=== PATIENT | male | born 1945 | race Caucasian/White ===

== ENCOUNTER → 2018-03-20 10:12 | Outpatient (CLI) | payer OTHER, SELFPAY ==
[2018-03-20 11:24] LABS: Hematocrit 46.8 % (41-53); Hemoglobin 16.2 g/dL (13.5-17.5); Mean Corpuscular HGB Conc 34.6 % (30-36); Mean Corpuscular Hemoglobin 31.8 PG (26-34); Mean Corpuscular Volume 92.2 fL (80-100); Platelet Count 154 X10^3/uL (150-400); Red Blood Cell Count 5.08 X10^6/uL (4.5-5.9); White Blood Cell Count 6.2 X10^3/uL (4.5-11.0)
[2018-03-20 11:53] LABS: Alanine Aminotransferase 20 IU/L (21-72); Albumin 4.1 g/dL (3.5-5.0); Albumin Globulin Ratio 1.4 (1.0-2.8); Alkaline Phosphatase 62 U/L (38-126); Aspartate Aminotransferase 28 IU/L (17-59); Bilirubin Unconjugated 0.8 mg/dL (0.0-1.1); Blood Urea Nitrogen 18 mg/dL (9-20); Calcium 9.4 mg/dL (8.4-10.2); Carbon Dioxide 30 mmol/L (22-32); Chloride 102 mmol/L (98-107); Estimated Glomerular Filt Rate > 60.0 mL/min (>60); Globulin 2.9 g/dL (1.7-4.1); Glucose 90 mg/dL (80-110); HEMOLYSIS 19 (0-50); Potassium 3.9 mmol/L (3.4-5.1); Sodium 143 mmol/L (137-145)
== END ==
PROVIDERS: Family Provider Hospitalist; PCP Hospitalist; Visit Provider Podiatrist
DX: B35.1 Tinea unguium (principal)
CPT/HCPCS: 36415; 80048; 80076; 85027

== ENCOUNTER 2021-10-25 10:47 | Emergency (ER) | payer OTHER, SELFPAY ==
[2021-10-25] VITALS (13 sets, daily range): BP systolic 144–192; BP diastolic 71–91; PULSE 60–70; RESP 13–27; TEMP 36.8; O2SAT 93–98; BMI 34.0
--- NOTE | 2021-10-25 10:56 | DI.RAD.S_ITS ---
PROCEDURE: XR CHEST 1V INDICATIONS: chest pain TECHNIQUE: One view of the chest was acquired. COMPARISON: [facility], CR, XR CHEST 1 VIEW, 02/24/2019, 10:40. [facility], CR, CHEST 2 VIEW, 12/24/2010, 10:34. FINDINGS: Surgical changes and devices: Median sternotomy wires are present and appear intact. Stable changes of prior CABG. Lungs and pleura: Lungs are clear. No pleural effusions or pneumothorax. Mediastinum: Mediastinal contours appear normal. Heart size is normal. Bones and chest wall: No suspicious bony lesions. Overlying soft tissues appear unremarkable. IMPRESSION: Stable radiographic evaluation of the chest without acute cardiopulmonary abnormalities or focal airspace disease. Dictated by: Honorio Triplett M.D. on 10/25/2021 at 11:20 Approved by: Honorio Triplett M.D. on 10/25/2021 at 11:20
[2021-10-25 11:05] LABS: Add Manual Diff / Slide Review NO; Basophils Absolute Auto 0 /uL (0-100); Basophils Percent Auto 0.6 % (0-2); Eosinophils Absolute Auto 100 /uL (0-450); Eosinophils Percent Auto 1.4 % (2-4); Hematocrit 47.4 % (41-53); Hemoglobin 16.3 g/dL (13.5-17.5); Lymphocytes Absolute Auto 1400 /uL (1100-4500); Lymphocytes Percent Auto 19.3 % (25-40); Mean Corpuscular HGB Conc 34.4 % (30-36); Mean Corpuscular Hemoglobin 31.7 PG (26-34); Mean Corpuscular Volume 92.1 fL (80-100); Monocytes Absolute Auto 1300 /uL (0-900); Monocytes Percent Auto 17.5 % (3-14); Neutrophils Absolute Auto 4600 /uL (1500-7000); Neutrophils Percent Auto 61.2 % (50-75); Platelet Count 133 X10^3/uL (150-400); Red Blood Cell Count 5.15 X10^6/uL (4.5-5.9); Red Cell Distribution Width 13.3 % (11.6-14.8); White Blood Cell Count 7.4 X10^3/uL (4.5-11.0)
[2021-10-25 11:17] LABS: Prothrombin Time 11.8 SECONDS (10.1-12.7)
[2021-10-25 11:19] LABS: COVID19 -Nasal RAPID Negative (Negative); PTT Partial Thromboplastin Tim 34 SECONDS (26.4-36.2)
[2021-10-25 11:21] LABS: Alanine Aminotransferase 16 IU/L (<50); Albumin 4.7 g/dL (3.5-5.0); Albumin Globulin Ratio 1.4 (1.0-2.8); Alkaline Phosphatase 76 U/L (38-126); Aspartate Aminotransferase 34 IU/L (17-59); BUN Creatinine Ratio 15.8 (6-22); Bilirubin Total 1.9 mg/dL (0.2-1.3); Blood Urea Nitrogen 16 mg/dL (9-20); Calcium 9.3 mg/dL (8.4-10.2); Carbon Dioxide 34 mmol/L (22-32); Chloride 101 mmol/L (98-107); Creatine Kinase 127 U/L (55-170); Estimated Glomerular Filt Rate > 60 mL/min (>60); Globulin 3.4 g/dL (1.7-4.1); Glucose 94 mg/dL (80-110); HEMOLYSIS < 15 (0-50); Lipase 33 U/L (23-300); Magnesium 2.1 mg/dL (1.6-2.3); Potassium 3.7 mmol/L (3.4-5.1); Sodium 141 mmol/L (137-145); Total Protein 8.1 g/dL (6.3-8.2)
[2021-10-25 11:32] LABS: Troponin I < 0.012 ng/mL (0.01-0.034)
[2021-10-25 11:48] LABS: CKMB % Relative Index 4.1 % (1.5-5.0); Creatine Kinase MB 5.24 ng/mL (<2.37)
--- NOTE | 2021-10-25 12:24 | ED_ITS ---
HPI - Chest Pain <Sadia Luna DO - Last Filed: 10/30/21 07:05> General Chief Complaint: Chest Pain Stated Complaint: Chest pain Time Seen by Provider: 10/25/21 12:24 History of Present Illness HPI narrative: Patient is a 76-year-old male history of coronary artery disease hypertension hyperlipidemia presenting today with increasing chest discomfort. He says that for a number of months he has increasing chest heaviness and shortness of breath walking on an incline. He said walking on level ground he has not had any issues. 1 week ago he had some upper respiratory like symptoms with increased phlegm in his chest his since then he has had worsening symptoms. He said now going up stairs he has some shortness of breath. He denies any orthopnea or wo rsening peripheral edema. He says he feels like his upper respiratory like symptoms are mostly gone. He has had 2 negative COVID tests. He denies any productive cough body aches or other symptoms. He is worried because he lives alone. [facility] has an appointment with them in 5 days. Related Data Home Medications Medication Instructions Recorded Confirmed aspirin 81 mg tablet,delayed 81 mg PO QDAY #0 12/21/10 release lisinopril 5 mg tablet 5 mg PO QDAY #0 12/21/10 metoprolol tartrate 25 mg tablet 25 mg PO TID #0 12/21/10 pravastatin 40 mg tablet 40 mg PO QHS #0 12/21/10 Previous Rx's Medication Instructions Recorded vardenafil 20 mg tablet (Levitra) 0 PO PRN PRN #12 tab 04/05/13 Allergies Allergy/AdvReac Type Severity Reaction Status Date / Time Sulfa (Sulfonamide Allergy Verified 10/25/21 10:57 Antibiotics) <Hanh Golden [facility] - Last Filed: 10/27/21 12:16> General Source: patient Mode of arrival: Ambulatory Limitations: no limitations Review of Systems <Sadia Luna DO - Last Filed: 10/30/21 07:05> Review of Systems Narrative: GENERAL: Denies chills, fatigue, malaise, fever, sweats, travel HEENT: Denies sinus pain, ear pain, sore throat, difficulty swallowing, neck pain RESPIRATORY: Denies dyspnea, cough, wheezing, hemoptysis, sputum. CARDIOVASCULAR: See HPI GASTROINTESTINAL: Denies nausea, vomiting, abdominal pain, diarrhea, constipat ion, melena. : Denies dysuria, frequency, incontinence, hematuria, urinary retention, flank pain. MUSCULOSKELETAL: Denies weakness, joint pain, or bony pain SKIN: No rash, no erythema, no pruritus NEUROLOGIC: Denies weakness, dizziness, headache, numbness, change in speech, confusion PSYCHIATRIC: No concerning psychosocial issues. 12 point review of systems is negative except for those stated above and HPI Patient History <Sadia Luna DO - Last Filed: 10/30/21 07:05> Social History Smoking Status: Unknown if ever smoked <DAINA Blue - Last Filed: 10/27/21 12:16> Smoking Status: Unknown if ever smoked alcohol intake frequency: holidays/special occasions only Substance Use Type: does not use Exam <Sadia Luna DO - Last Filed: 10/30/21 07:05> Initial Vital Signs Initial Vital Signs: Vital Signs Temperature 98.3 F 10/25/21 10:49 Pulse Rate 69 10/25/21 10:49 Respiratory Rate 16 10/25/21 10:49 Blood Pressure 192/91 H 10/25/21 10:49 Pulse Oximetry 97 10/25/21 10:49 GENERAL: Alert pleasant 76-year-old male in no acute distress. HEENT: Head atraumatic,EOMI, pupils reactive, face symmetric, moist mucous membranes CARDIOVASCULAR: Regular rate and rhythm without murmurs, rubs or gallops. RESPIRATORY: Breath sounds equal bilaterally, no wheezes rales or rhonchi. ABDOMEN: Soft, nontender. Normoactive bowel sounds all 4 quadrants. No guarding or rebound. EXTREMITIES: Normal range of motion, no clubbing or edema. Neurovascularly intact NEUROLOGICAL: Alert and oriented x4.Normal gait and speech. SKIN: Warm, dry, no laceration, no petechiae, no rashes or lesions. <DAINA Blue - Last Filed: 10/27/21 12:16> Initial Vital Signs Initial Vital Signs: Vital Signs Temperature 98.3 F 10/25/21 10:49 Pulse Rate 69 10/25/21 10:49 Respiratory Rate 16 10/25/21 10:49 Blood Pressure 192/91 H 10/25/21 10:49 Pulse Oximetry 97 10/25/21 10:49 Course <Sadia Luna DO - Last Filed: 10/30/21 07:05> Orders Ordered: ED Orders 10/25/21 13:17 BNP [NT-proBNP (BNP-Adult 18+)] Stat Trop I [Troponin I] Stat Vital Signs Vital signs: Vital Signs - 8 hr 10/25/21 13:00 10/25/21 13:19 10/25/21 13:30 Pulse Rate 69 61 63 Respiratory Rate 26 H 13 21 Blood Pressure 167/79 H 165/80 H Pulse Oximetry 96 95 94 10/25/21 14:00 10/25/21 14:30 10/25/21 14:31 Pulse Rate 60 64 62 Respiratory Rate 17 16 17 Blood Pressure 144/71 H Pulse Oximetry 93 93 93 <CASSIDY BlueP - Last Filed: 10/27/21 12:16> Orders Ordered: ED Orders 10/25/21 13:17 BNP [NT-proBNP (BNP-Adult 18+)] Stat Trop I [Troponin I] Stat Vital Signs Vital signs: Vital Signs - 8 hr 10/25/21 13:00 10/25/21 13:19 10/25/21 13:30 Pulse Rate 69 61 63 Respiratory Rate 26 H 13 21 Blood Pressure 167/79 H 165/80 H Pulse Oximetry 96 95 94 10/25/21 14:00 10/25/21 14:30 10/25/21 14:31 Pulse Rate 60 64 62 Respiratory Rate 17 16 17 Blood Pressure 144/71 H Pulse Oximetry 93 93 93 MDM - Chest Pain <DO Sheree Diana Last Filed: 10/30/21 07:05> Lab Data Result diagrams: 10/25/21 10:55 10/25/21 10:55 Labs: Lab Results 10/25/21 10/25/21 10/25/21 Range/Units 10:55 10:55 10:55 WBC 7.4 (4.5-11.0) X10^3/uL RBC 5.15 (4.5-5.9) X10^6/uL Hgb 16.3 (13.5-17.5) g/dL Hct 47.4 (41-53) % MCV 92.1 (80-100) fL MCH 31.7 (26-34) PG MCHC 34.4 (30-36) % RDW 13.3 (11.6-14.8) % Plt Count 133 L (150-400) X10^3/uL Neut % (Auto) 61.2 (50-75) % Lymph % (Auto) 19.3 L (25-40) % Gaines % (Auto) 17.5 H (3-14) % Eos % (Auto) 1.4 L (2-4) % Baso % (Auto) 0.6 (0-2) % Neut # (Auto) 4600 (2584-0753) /uL Lymph # (Auto) 1400 (8903-7316) /uL Gaines # (Auto) 1300 H (0-900) /uL Eos # (Auto) 100 (0-450) /uL Baso # (Auto) 0 (0-100) /uL PT 11.8 (10.1-12.7) SECONDS INR 1.0 (0.9-1.3) APTT 34 (26.4-36.2) SECONDS D-Dimer (<230) ng/mL Sodium 141 (137-145) mmol/L Potassium 3.7 (3.4-5.1) mmol/L Chloride 101 (98-107) mmol/L Carbon Dioxide 34 H (22-32) mmol/L BUN 16 (9-20) mg/dL Creatinine 1.01 (0.66-1.25) mg/dL Estimated GFR > 60 (>60) mL/min BUN/Creatinine Ratio 15.8 (6-22) Glucose 94 (80-110) mg/dL Calcium 9.3 (8.4-10.2) mg/dL Magnesium 2.1 (1.6-2.3) mg/dL Total Bilirubin 1.9 H (0.2-1.3) mg/dL AST 34 (17-59) IU/L ALT 16 (<50) IU/L Alkaline Phosphatase 76 (38-126) U/L Total Creatine Kinase 127 (55-170) U/L CK-MB (CK-2) 5.24 H (<2.37) ng/mL CK-MB (CK-2) Rel Index 4.1 (1.5-5.0) % Troponin I < 0.012 (0.01-0.034) ng/mL NT-Pro-B Natriuret Pep (<450) pg/mL Total Protein 8.1 (6.3-8.2) g/dL Albumin 4.7 (3.5-5.0) g/dL Globulin 3.4 (1.7-4.1) g/dL Albumin/Globulin Ratio 1.4 (1.0-2.8) Lipase 33 (23-300) U/L SARS-CoV-2 (PCR) (Negative) 10/25/21 10/25/21 10/25/21 Range/Units 10:55 10:55 13:17 WBC (4.5-11.0) X10^3/uL RBC (4.5-5.9) X10^6/uL Hgb (13.5-17.5) g/dL Hct (41-53) % MCV (80-100) fL MCH (26-34) PG MCHC (30-36) % RDW (11.6-14.8) % Plt Count (150-400) X10^3/uL Neut % (Auto) (50-75) % Lymph % (Auto) (25-40) % Gaines % (Auto) (3-14) % Eos % (Auto) (2-4) % Baso % (Auto) (0-2) % Neut # (Auto) (4822-3280) /uL Lymph # (Auto) (0182-7154) /uL Gaines # (Auto) (0-900) /uL Eos # (Auto) (0-450) /uL Baso # (Auto) (0-100) /uL PT (10.1-12.7) SECONDS INR (0.9-1.3) APTT (26.4-36.2) SECONDS D-Dimer 215 (<230) ng/mL Sodium (137-145) mmol/L Potassium (3.4-5.1) mmol/L Chloride (98-107) mmol/L Carbon Dioxide (22-32) mmol/L BUN (9-20) mg/dL Creatinine (0.66-1.25) mg/dL Estimated GFR (>60) mL/min BUN/Creatinine Ratio (6-22) Glucose (80-110) mg/dL Calcium (8.4-10.2) mg/dL Magnesium (1.6-2.3) mg/dL Total Bilirubin (0.2-1.3) mg/dL AST (17-59) IU/L ALT (<50) IU/L Alkaline Phosphatase (38-126) U/L Total Creatine Kinase (55-170) U/L CK-MB (CK-2) (<2.37) ng/mL CK-MB (CK-2) Rel Index (1.5-5.0) % Troponin I < 0.012 (0.01-0.034) ng/mL NT-Pro-B Natriuret Pep 282 (<450) pg/mL Total Protein (6.3-8.2) g/dL Albumin (3.5-5.0) g/dL Globulin (1.7-4.1) g/dL Albumin/Globulin Ratio (1.0-2.8) Lipase (23-300) U/L SARS-CoV-2 (PCR) Negative (Negative) Imaging Data Chest x-ray: Radiologist's Impression: Corey Tolentino MR#: [id number] : 1945 Acct:[id number] Age/Sex: 76 / M Date of Service: 10/25/21 Loc: ED Accession Number: [id number] ?? Procedure: XR chest 1V Ordering Provider: Sadia Luna D.O. PROCEDURE:? XR CHEST 1V ? INDICATIONS:? chest pain ? TECHNIQUE:? One view of the chest was acquired.? ? COMPARISON:? [facility], , XR CHEST 1 VIEW, 02/24/2019, 10:40.? [facility], , CHEST 2 VIEW, 12/24/2010, 10:34. ? FINDINGS:? ? Surgical changes and devices:? Median sternotomy wires are present and appear intact.? Stable changes of prior CABG. ? Lungs and pleura:? Lungs are clear.? No pleural effusions or pneumothorax.? ? Mediastinum:? Mediastinal contours appear normal.? Heart size is normal.? ? Bones and chest wall:? No suspicious bony lesions.? Overlying soft tissues appear unremarkable.? ? IMPRESSION:? Stable radiographic evaluation of the chest without acute cardiopulmonary abnormalities or focal airspace disease. ? ? ? Dictated by: Honorio Triplett M.D. on 10/25/2021 at 11:20 ? ? Approved by: Honorio Triplett M.D. on 10/25/2021 at 11:20 ? ECG Data Interpretation: Sinus rhythm rate 66 do not agree with atrial flutter right bundle branch block noted new from prior EKG in 2010 <Hanh Golden [facility] - Last Filed: 10/27/21 12:16> Lab Data Labs: Lab Results 10/25/21 10/25/21 10/25/21 Range/Units 10:55 10:55 10:55 WBC 7.4 (4.5-11.0) X10^3/uL RBC 5.15 (4.5-5.9) X10^6/uL Hgb 16.3 (13.5-17.5) g/dL Hct 47.4 (41-53) % MCV 92.1 (80-100) fL MCH 31.7 (26-34) PG MCHC 34.4 (30-36) % RDW 13.3 (11.6-14.8) % Plt Count 133 L (150-400) X10^3/uL Neut % (Auto) 61.2 (50-75) % Lymph % (Auto) 19.3 L (25-40) % Gaines % (Auto) 17.5 H (3-14) % Eos % (Auto) 1.4 L (2-4) % Baso % (Auto) 0.6 (0-2) % Neut # (Auto) 4600 (1476-8855) /uL Lymph # (Auto) 1400 (5648-6673) /uL Gaines # (Auto) 1300 H (0-900) /uL Eos # (Auto) 100 (0-450) /uL Baso # (Auto) 0 (0-100) /uL PT 11.8 (10.1-12.7) SECONDS INR 1.0 (0.9-1.3) APTT 34 (26.4-36.2) SECONDS D-Dimer (<230) ng/mL Sodium 141 (137-145) mmol/L Potassium 3.7 (3.4-5.1) mmol/L Chloride 101 (98-107) mmol/L Carbon Dioxide 34 H (22-32) mmol/L BUN 16 (9-20) mg/dL Creatinine 1.01 (0.66-1.25) mg/dL Estimated GFR > 60 (>60) mL/min BUN/Creatinine Ratio 15.8 (6-22) Glucose 94 (80-110) mg/dL Calcium 9.3 (8.4-10.2) mg/dL Magnesium 2.1 (1.6-2.3) mg/dL Total Bilirubin 1.9 H (0.2-1.3) mg/dL AST 34 (17-59) IU/L ALT 16 (<50) IU/L Alkaline Phosphatase 76 (38-126) U/L Total Creatine Kinase 127 (55-170) U/L CK-MB (CK-2) 5.24 H (<2.37) ng/mL CK-MB (CK-2) Rel Index 4.1 (1.5-5.0) % Troponin I < 0.012 (0.01-0.034) ng/mL NT-Pro-B Natriuret Pep (<450) pg/mL Total Protein 8.1 (6.3-8.2) g/dL Albumin 4.7 (3.5-5.0) g/dL Globulin 3.4 (1.7-4.1) g/dL Albumin/Globulin Ratio 1.4 (1.0-2.8) Lipase 33 (23-300) U/L SARS-CoV-2 (PCR) (Negative) 10/25/21 10/25/21 10/25/21 Range/Units 10:55 10:55 13:17 WBC (4.5-11.0) X10^3/uL RBC (4.5-5.9) X10^6/uL Hgb (13.5-17.5) g/dL Hct (41-53) % MCV (80-100) fL MCH (26-34) PG MCHC (30-36) % RDW (11.6-14.8) % Plt Count (150-400) X10^3/uL Neut % (Auto) (50-75) % Lymph % (Auto) (25-40) % Gaines % (Auto) (3-14) % Eos % (Auto) (2-4) % Baso % (Auto) (0-2) % Neut # (Auto) (1317-8101) /uL Lymph # (Auto) (2143-0209) /uL Gaines # (Auto) (0-900) /uL Eos # (Auto) (0-450) /uL Baso # (Auto) (0-100) /uL PT (10.1-12.7) SECONDS INR (0.9-1.3) APTT (26.4-36.2) SECONDS D-Dimer 215 (<230) ng/mL Sodium (137-145) mmol/L Potassium (3.4-5.1) mmol/L Chloride (98-107) mmol/L Carbon Dioxide (22-32) mmol/L BUN (9-20) mg/dL Creatinine (0.66-1.25) mg/dL Estimated GFR (>60) mL/min BUN/Creatinine Ratio (6-22) Glucose (80-110) mg/dL Calcium (8.4-10.2) mg/dL Magnesium (1.6-2.3) mg/dL Total Bilirubin (0.2-1.3) mg/dL AST (17-59) IU/L ALT (<50) IU/L Alkaline Phosphatase (38-126) U/L Total Creatine Kinase (55-170) U/L CK-MB (CK-2) (<2.37) ng/mL CK-MB (CK-2) Rel Index (1.5-5.0) % Troponin I < 0.012 (0.01-0.034) ng/mL NT-Pro-B Natriuret Pep 282 (<450) pg/mL Total Protein (6.3-8.2) g/dL Albumin (3.5-5.0) g/dL Globulin (1.7-4.1) g/dL Albumin/Globulin Ratio (1.0-2.8) Lipase (23-300) U/L SARS-CoV-2 (PCR) Negative (Negative) Discharge Plan Departure Patient Disposition: Home Clinical Impression: Atypical chest pain Instructions: DI for Atypical Chest Pain Activity Restrictions/Additional Instructions: *You have been diagnosed with atypical chest pain *What to do: At this time you do need a stress test. [facility]. I think her symptoms were exacerbated by your recent cold. However you do not need antibiotics at this time. *Continue to take medications as directed *Follow up with your primary care provider in 2-3 days or call [phone] *Return to ER if you should have increase in chest pain, shortness of breath palpitations or any new, worsening or concerning symptoms Prescriptions: No Action aspirin 81 MG tablet,delayed release (DR/EC) 81 mg PO QDAY Qty: 0 0RF lisinopril 5 MG tablet 5 mg PO QDAY Qty: 0 0RF metoprolol tartrate 25 MG tablet 25 mg PO TID Qty: 0 0RF pravastatin 40 MG tablet 40 mg PO QHS Qty: 0 0RF vardenafil [Levitra] 20 MG tablet 0 PO PRN PRNQty: 12 11RF [facility]Outside[facility] ED Sign-out <Sadia Luna, - Last Filed: 10/30/21 07:05> Cosign ED Attending Cosignature Attestation: Hanh golden did not see this patient.
[2021-10-25 13:29] LABS: D Dimer 215 ng/mL (<230)
[2021-10-25 13:48] LABS: NT-proBNP (BNP-Adult 18+) 282 pg/mL (<450); Troponin I < 0.012 ng/mL (0.01-0.034)
== END 2021-10-25 14:42 | disposition home or self-care (01) ==
PROVIDERS: Emergency Provider Emergency Medicine; Family Provider Hospitalist
DX: R07.89 Other chest pain (principal); R06.02 Shortness of breath; Z20.822 Contact with and (suspected) exposure to COVID-19
CPT/HCPCS: 36415; 71045; 80053; 82550; 82553; 83690; 83735; 83880; 84484; 85025; 85379; 85610; 85730; 87635; 93005; 93010; 99284; C9803

== ENCOUNTER → 2025-05-13 19:03 | Outpatient (CLI) | payer OTHER, SELFPAY ==
--- NOTE | 2025-05-13 19:07 | DI.MRI.S_ITS ---
PROCEDURE: MR LUMBAR SPINE WO CON INDICATIONS: Radiculopathy, lumbar region TECHNIQUE: Noncontrast sagittal T1 spin echo and T2 fast echo, sagittal STIR, axial T1 and T2 fast spin echo through the lumbar spine. Axial and oblique coronal T1 spin echo and STIR through the sacrum. In cases with scoliosis, additional coronal T2 fast spin echo may be performed. COMPARISON: None. FINDINGS: Image quality: Excellent. Alignment and Curvature: There is normal bony alignment. Bone Marrow: Marrow is of normal overall signal. No acute vertebral body compression fractures. No sacral fractures. Sclerotic nodule in the right iliac spine probably reflects bone island or enostosis. Spinal Cord: Conus medullaris terminates at the L1 level. Visualized cord demonstrates normal signal and size. Paraspinous Soft Tissues: No paravertebral masses. T12-L1: Normal appearance. L1-L2: No central or foraminal stenosis. L2-L3: Disc bulge and arthropathy. Mild central stenosis. Mild bilateral foraminal stenosis L3-L4: Disc bulge and arthropathy. Ligamentum flavum laxity. Moderate central stenosis. Moderate bilateral foraminal stenosis L4-L5: Disc bulge and arthropathy. Ligamentum flavum laxity. Moderate to severe central stenosis. Moderate right and mild left foraminal stenosis L5-S1: Arthropathy. Mild central stenosis. Moderate bilateral foraminal stenosis IMPRESSION: Multilevel degenerative disc disease and arthropathy results in varying degrees of central and foraminal stenosis including moderate to severe central stenosis L4-5 Approved by: Nelson Soler M.D. on 05/16/2025 at 12:25
== END ==
LOC: MRI 19:05
PROVIDERS: Family Provider Internal Medicine; PCP Family Medicine; Referring Provider Family Medicine; Visit Provider Family Medicine
DX: M51.16 Intervertebral disc disorders with radiculopathy, lumbar region (principal); M48.061 Spinal stenosis, lumbar region without neurogenic claudication; M48.07 Spinal stenosis, lumbosacral region; M47.26 Other spondylosis with radiculopathy, lumbar region; M47.27 Other spondylosis with radiculopathy, lumbosacral region
CPT/HCPCS: 72148